=== PATIENT | male | born 1965 | race American Indian/Alaskan Native ===

== ENCOUNTER 2017-06-02 00:53 | Emergency (ER) | payer SELFPAY ==
[2017-06-02] MEDS ORDERED: CATAPRES PO ONE (03:24)
[2017-06-02] MEDS ORDERED: ASPIRIN PO ONE (03:24)
[2017-06-02 04:07] LABS: Basophils # (Auto) 0.1 K/mm3 (0.0-0.1); Basophils % (Auto) 0.8 % (0.0-1.8); Eosinophils # (Auto) 0.2 K/mm3 (0.0-0.4); Eosinophils % (Auto) 1.6 % (0.0-4.3); Hematocrit 44.4 % (35.5-45.6); Hemoglobin 14.4 gm/dl (11.8-15.2); Lymphocytes # (Auto) 3.5 K/mm3 (1.2-5.4); Lymphocytes % (Auto) 27.2 % (13.4-35.0); Mean Corpuscular HGB Conc 32 % (32-34); Mean Corpuscular Hemoglobin 29 pg (28-32); Mean Corpuscular Volume 91 fl (84-94); Monocytes # (Auto) 0.8 K/mm3 (0.0-0.8); Monocytes % (Auto) 6.5 % (0.0-7.3); Platelet Count 221 K/mm3 (140-440); Red Blood Count 4.89 M/mm3 (3.65-5.03); Red Cell Distribution Width 13.8 % (13.2-15.2)
[2017-06-02 04:19] LABS: BUN/Creatinine Ratio 13; Blood Urea Nitrogen 8 mg/dL (9-20); Calcium 8.9 mg/dL (8.4-10.2); Hemolysis Index 4
--- NOTE | 2017-06-02 04:42 | XRay Report ---
FINAL REPORT PROCEDURE: XR CHEST 1V AP TECHNIQUE: Chest radiograph anteroposterior view. CPT 13762 HISTORY: Chest Pain COMPARISON: No prior studies are available for comparison. FINDINGS: Heart: Normal. Mediastinum/Vessels: Normal. Lungs/Pleural space: Lungs are clear. There are no infiltrates, effusions or pneumothoraces.. Bony thorax: No acute osseous abnormality. Life support devices: None. IMPRESSION: No acute cardiopulmonary abnormality.
--- NOTE | 2017-06-02 06:31 | Emergency Department Report ---
ED Chest Pain HPI - General Chief Complaint: Chest Pain Stated Complaint: CHEST PAIN, BP HIGH Time Seen by Provider: 06/02/17 03:14 Source: patient Mode of arrival: Ambulatory Limitations: No Limitations - History of Present Illness Initial Comments: Patient is a 51-year-old male who is presenting to the hospital with 1 day of chest pain. Patient states his right-sided nares shoulder. States that last just seconds at a time. Patient's blood pressure is elevated states he missed about 3 weeks of his blood pressure medicines but is back on it now [place] on for almost a week. Patient states that the chest pain feels like it stuck tightening or spasm in the chest. He denies any nausea vomiting diaphoresis shortness of breath or cough. Patient also states he's been belching often recently as well. Severity scale (0 -10): 3 - Related Data Previous Rx's Medication Instructions Recorded Last Taken Type traMADol [Ultram] 50 mg PO Q6HR PRN #10 tablet 06/02/17 Unknown Rx Allergies Allergy/AdvReac Type Severity Reaction Status Date / Time lisinopril AdvReac Unknown Verified 06/02/17 04:25 Heart Score - HEART Score History: Slightly suspicious EKG: Normal Age: 45-65 Risk factors: 1-2 risk factors Troponin: < normal limit HEART Score: 2 ED Review of Systems ROS: Stated complaint: CHEST PAIN, BP HIGH Other details as noted in HPI Comment: All other systems reviewed and negative ED Past Medical Hx - Past Medical History Previous Medical History?: Yes Hx Hypertension: Yes Hx Diabetes: Yes - Surgical History Past Surgical History?: No - Social History Smoking Status: Current Every Day Smoker Substance Use Type: Alcohol - Medications Home Medications: Home Medications Medication Instructions Recorded Confirmed Last Taken Type traMADol [Ultram] 50 mg PO Q6HR PRN #10 tablet 06/02/17 Unknown Rx ED Physical Exam - General Limitations: No Limitations General appearance: alert, in no apparent distress - Head Head exam: Present: atraumatic, normocephalic - Eye Eye exam: Present: normal appearance - ENT ENT exam: Present: mucous membranes moist - Neck Neck exam: Present: normal inspection - Respiratory Respiratory exam: Present: normal lung sounds bilaterally. Absent: respiratory distress, wheezes, rales, rhonchi - Cardiovascular Cardiovascular Exam: Present: regular rate, normal rhythm. Absent: systolic murmur, diastolic murmur, rubs, gallop - GI/Abdominal GI/Abdominal exam: Present: soft, normal bowel sounds. Absent: distended, tenderness, guarding - Rectal Rectal exam: Present: deferred - Extremities Exam Extremities exam: Present: normal inspection - Back Exam Back exam: Present: normal inspection - Neurological Exam Neurological exam: Present: alert, oriented X3 - Psychiatric Psychiatric exam: Present: normal affect, normal mood - Skin Skin exam: Present: warm, dry, intact, normal color. Absent: rash ED Course Vital Signs 06/02/17 06/02/17 06/02/17 01:19 02:59 03:00 Temperature 98 F Pulse Rate 127 H Respiratory 18 Rate Blood Pressure 209/104 217/105 Blood Pressure [Left] O2 Sat by Pulse 99 99 99 Oximetry 06/02/17 06/02/17 06/02/17 03:14 03:15 03:20 Temperature 98.1 F Pulse Rate 78 74 Respiratory 13 11 L 13 Rate Blood Pressure 208/102 Blood Pressure 217/105 [Left] O2 Sat by Pulse 100 100 Oximetry 06/02/17 06/02/17 06/02/17 03:31 03:45 03:46 Temperature Pulse Rate 74 73 69 Respiratory 13 17 Rate Blood Pressure 187/108 188/97 187/108 Blood Pressure [Left] O2 Sat by Pulse 100 100 Oximetry 06/02/17 06/02/17 06/02/17 04:01 04:15 04:31 Temperature Pulse Rate 72 77 73 Respiratory 20 21 17 Rate Blood Pressure 188/97 188/97 188/97 Blood Pressure [Left] O2 Sat by Pulse 100 100 99 Oximetry 06/02/17 06/02/17 06/02/17 04:45 05:01 05:15 Temperature Pulse Rate 72 72 68 Respiratory 18 20 15 Rate Blood Pressure 188/97 162/88 171/89 Blood Pressure [Left] O2 Sat by Pulse 98 100 97 Oximetry 06/02/17 06/02/17 05:30 05:45 Temperature Pulse Rate 71 69 Respiratory 18 17 Rate Blood Pressure 155/86 143/84 Blood Pressure [Left] O2 Sat by Pulse 96 92 Oximetry ED Medical Decision Making - Lab Data Result diagrams: 06/02/17 03:54 06/02/17 03:54 - EKG Data -: EKG Interpreted by Ar - EKG Data Interpretation: other (EKG shows sinus rhythm a rate of 81 axis is leftward intervals are normal. No ST segment elevations or depressions. Interpretation is 110) - Radiology Data Radiology results: report reviewed No acute process on chest x-ray - Medical Decision Making Patient's blood pressure was improved here in emergency department. Patient primary care physician Dr. Zacarias was here in the hospital and states he will see the patient as follow-up. Critical care attestation.: If time is entered above; I have spent that time in minutes in the direct care of this critically ill patient, excluding procedure time. ED Disposition Clinical Impression: Hypertensive urgency, Atypical chest pain Disposition: DC-01 TO HOME OR SELFCARE Is pt being admited?: No Does the pt Need Aspirin: No Condition: Stable Instructions: Chest Pain (ED), Hypertension (ED) Prescriptions: traMADol [Ultram] 50 mg PO Q6HR PRN #10 tablet PRN Reason: Pain Referrals: MANDY ORTIZ MD [Primary Care Provider] - 3-5 Days
[2017-06-02 06:57] VITALS: BP 134/75
== END 2017-06-02 07:16 | disposition home or self-care (01) ==
LOC: ED 00:53
DX: I10 Essential (primary) hypertension (principal); R07.89 Other chest pain; E11.9 Type 2 diabetes mellitus without complications; F17.200 Nicotine dependence, unspecified, uncomplicated; Z88.8 Allergy status to other drugs, medicaments and biological substances
CPT/HCPCS: 36415; 71045; 80048; 84484; 85025; 93005; 93010; 99284

== ENCOUNTER 2017-07-12 16:11 | Emergency (ER) | payer BC ==
[2017-07-12 16:18] VITALS: BP 150/82
--- NOTE | 2017-07-12 18:04 | Emergency Department Report ---
- General Chief Complaint: Upper Respiratory Infection Stated Complaint: COUGH Time Seen by Provider: 07/12/17 17:55 Source: patient Mode of arrival: Ambulatory Limitations: No Limitations - History of Present Illness Initial Comments: ASIS 51-year-old black male with a past history of smoking who presented with a week and a half of a productive cough. Patient states has a deep cough congestion with some mild shortness of breath. Patient states he is coughing up green mucus. 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 Patient denies any fevers nausea vomiting diarrhea. Patient does state he has some mild right-sided chest discomfort with his cough. - Related Data Previous Rx's Medication Instructions Recorded Last Taken Type traMADol [Ultram] 50 mg PO Q6HR PRN #10 tablet 06/02/17 Unknown Rx ALBUTEROL Inhaler [ProAir HFA 2 puff IH QID PRN #1 inhalation 07/12/17 Unknown Rx Inhaler] Azithromycin [Zithromax Z-PRISCILLA] 250 mg PO DAILY #6 tablet 07/12/17 Unknown Rx HYDROcodone/APAP 5-325 [[place] 1 each PO Q4HR PRN #12 tablet 07/12/17 Unknown Rx 5/325] predniSONE [Deltasone] 10 mg PO QDAY #5 tab 07/12/17 Unknown Rx Allergies Allergy/AdvReac Type Severity Reaction Status Date / Time lisinopril AdvReac Unknown Verified 06/02/17 04:25 ED Review of Systems ROS: Stated complaint: COUGH Other details as noted in HPI Comment: All other systems reviewed and negative ED Past Medical Hx - Past Medical History Hx Hypertension: Yes Hx Diabetes: Yes - Social History Smoking Status: Current Every Day Smoker Substance Use Type: None - Medications Home Medications: Home Medications Medication Instructions Recorded Confirmed Last Taken Type traMADol [Ultram] 50 mg PO Q6HR PRN #10 tablet 06/02/17 Unknown Rx ALBUTEROL Inhaler [ProAir HFA 2 puff IH QID PRN #1 inhalation 07/12/17 Unknown Rx Inhaler] Azithromycin [Zithromax Z-PRISCILLA] 250 mg PO DAILY #6 tablet 07/12/17 Unknown Rx HYDROcodone/APAP 5-325 [[place] 1 each PO Q4HR PRN #12 tablet 07/12/17 Unknown Rx 5/325] predniSONE [Deltasone] 10 mg PO QDAY #5 tab 07/12/17 Unknown Rx ED Physical Exam - General Limitations: No Limitations General appearance: alert, in no apparent distress - Head Head exam: Present: atraumatic, normocephalic - Eye Eye exam: Present: normal appearance - ENT ENT exam: Present: mucous membranes moist - Neck Neck exam: Present: normal inspection - Respiratory Respiratory exam: Present: normal lung sounds bilaterally. Absent: respiratory distress, wheezes, rales, rhonchi, stridor, accessory muscle use - Cardiovascular Cardiovascular Exam: Present: regular rate, normal rhythm. Absent: systolic murmur, diastolic murmur, rubs, gallop - GI/Abdominal GI/Abdominal exam: Present: soft, normal bowel sounds. Absent: distended, tenderness, guarding, rebound, rigid - Rectal Rectal exam: Present: deferred - Extremities Exam Extremities exam: Present: normal inspection - Back Exam Back exam: Present: normal inspection - Neurological Exam Neurological exam: Present: alert, oriented X3 - Psychiatric Psychiatric exam: Present: normal affect, normal mood - Skin Skin exam: Present: warm, dry, intact, normal color. Absent: rash ED Course Vital Signs 07/12/17 16:15 Temperature 98.7 F Pulse Rate 92 H Respiratory 18 Rate Blood Pressure 150/82 O2 Sat by Pulse 97 Oximetry ED Medical Decision Making - Medical Decision Making Patient's lungs are clear he's 90% on room air at this time. Patient will be discharged home at this time and treated for smokers bronchitis Critical care attestation.: If time is entered above; I have spent that time in minutes in the direct care of this critically ill patient, excluding procedure time. ED Disposition Clinical Impression: Acute bronchitis Qualifiers: Bronchitis organism: unspecified organism Qualified Code(s): J20.9 - Acute bronchitis, unspecified Disposition: DC-01 TO HOME OR SELFCARE Is pt being admited?: No Does the pt Need Aspirin: No Condition: Stable Instructions: Acute Bronchitis (ED) Referrals: PRIMARY CARE,MD [Primary Care Provider] - 3-5 Days Forms: Work/School Release Form(ED)
== END 2017-07-12 18:00 | disposition home or self-care (01) ==
LOC: ED 16:11
DX: J20.9 Acute bronchitis, unspecified (principal); I10 Essential (primary) hypertension; E11.9 Type 2 diabetes mellitus without complications; F17.200 Nicotine dependence, unspecified, uncomplicated
CPT/HCPCS: 99281